=== PATIENT | female | born 1935 | race Caucasian/White ===

== ENCOUNTER 2016-07-03 15:29 | Inpatient (IN) | payer MEDICARE ==
[2016-07-03 16:20] LABS: BASOPHILS 0.5 % (0.0-2.0); EOSINOPHILS 0.5 % (0-7); HEMOGLOBIN 9.2 g/dL (12-16); IMMATURE GRANULOCYTES 0.2 % (0-5); LYMPHOCYTES 20.7 % (15-50); MCH 22.3 pg (26.0-34.0); MCHC 28.8 g/dL (31.0-37.0); MCV 77.7 fL (80.0-100.0); MEAN PLATELET VOLUME 9.1 fL (7.4-10.4); NEUTROPHILS 68.1 % (40-80); RBC 4.12 10x6/uL (4.00-5.40); RDW 17.9 % (11.5-14.5); WBC 4.1 10x3/uL (4.8-10.8)
[2016-07-03 16:24] LABS: PLATELET COUNT 258 10x3/uL (130-400)
[2016-07-03 16:25] LABS: UDS - AMPHET NEGATIVE QUAL (NEGATIVE); UDS - BARB NEGATIVE QUAL (NEGATIVE); UDS - BENZO NEGATIVE QUAL (NEGATIVE); UDS - COCAINE NEGATIVE QUAL (NEGATIVE); UDS - METH NEGATIVE QUAL (NEGATIVE); UDS - OPIATE POSITIVE QUAL (NEGATIVE); UDS - PCP NEGATIVE QUAL (NEGATIVE); UDS - THC NEGATIVE QUAL (NEGATIVE)
[2016-07-03 16:34] LABS: ALBUMIN 3.8 g/dL (3.4-5.0); ANION GAP 12.1 mmol/L (8-16); BILIRUBIN - TOTAL 0.37 mg/dL (0.2-1.3); CARBON DIOXIDE 27.5 mmol/L (21.0-32.0); CREATININE - SERUM 1.1 mg/dL (0.6-1.3); POTASSIUM - SERUM 3.6 mmol/L (3.5-5.1)
[2016-07-03 16:35] LABS: APPEARANCE HAZY (CLEAR); BILIRUBIN NEGATIVE (NEGATIVE); COLOR YELLOW (YELLOW); GLUCOSE NEGATIVE (NEGATIVE); KETONE NEGATIVE (NEGATIVE); LEUKOCYTE ESTERASE 1+ (NEGATIVE); NITRITE POSITIVE (NEGATIVE); PROTEIN TRACE mg/dL (NEGATIVE); UROBILINOGEN NORMAL (NORMAL)
[2016-07-03 16:37] LABS: BACTERIA MANY /hpf (NONE SEEN); EPITHELIAL CELLS 0-5 /hpf (0-5); RED CELLS - URINE 0-5 /hpf (0-5)
[2016-07-03 16:43] LABS: THYROID STIMULATING HORMONE 0.64 uIU/mL (0.36-3.74)
[2016-07-03 17:43] LABS: % SATURATION 3 % (15-55); IRON 13 ug/dl (35-150); TOTAL IRON BIND CAPACITY 342 ug/dl (260-445); UNSAT IRON BIND CAPACITY 329 ug/dl (150-375)
[2016-07-03] MEDS ORDERED: CALAN SR240 MG PO (20:08)
[2016-07-03] MEDS ORDERED: LISINOPRIL5 MG PO (20:08)
[2016-07-03] MEDS ORDERED: ZOFRAN ODT4 MG/UDTAB PO (20:10)
[2016-07-03] MEDS ORDERED: HYDROCODONE-APA1 TAB PO (20:11)
[2016-07-03] MEDS ORDERED: PHENERGAN25 M1 PO (20:12)
[2016-07-03] MEDS ORDERED: LOMOTIL TABLET1 TAB PO (20:12)
[2016-07-03] MEDS ORDERED: ATIVAN1 MG PO (20:13)
[2016-07-03] MEDS ORDERED: ULTRAM50 MG PO (20:15)
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
[2016-07-04 03:06] VITALS: BP 183/89; BMI 20.6
--- NOTE | 2016-07-04 05:12 | NUR ---
PATIENT GAETANO CALLED, .
[2016-07-04 08:39] VITALS: BP 142/100
[2016-07-04 12:22] VITALS: Wt 54.4 kg
--- NOTE | 2016-07-04 14:03 | NUR ---
(B)RECEIVED PATIENT AT THE NURSE'S STATION ASKING IF SHE WAS GOING TO SEE A DOCTOR TODAY. VERY FORGETFUL AND CONTINUES TO ASK THE SAME QUESTION AGAIN AND AGAIN. ORIENTED TO [facility] TOMBALL AND THURSDAY. RELATES REASON FOR HOSPITALIZATION "MOSTLY CONFUSION. I THOUGHT MY WAS OFF AT [employer] AND THIS MAN WOULD ASK WHEN LISBETH IS COMING HOME. I'M LISBETH AND YOU CAN BE HAPPY WITH ME NOW." SOCIAL. COOPERATIVE AND PLEASANT. (I)ADMINISTER MEDS AND MONITOR COMPLIANCE. REORIENT NEEDED, (R)MED COMPLIANT. REORIENTS HOWEVER SHORT TERM MEMORY IS IMPAIRED AND DOES NOT RETAIN INFORMATION. REMAINS COOPERATIVE AND PLEASANT HOWEVER VERY CONFUSED. (P)CONTINUE POC AND MAINTAIN FALL PRECAUTIONS.
[2016-07-04 19:30] VITALS: BP 123/85
--- NOTE | 2016-07-04 20:30 | NUR ---
B) RECEIVED IN DAYROOM SITTING IN CHAIR WATCHING TV. CALM AND PLEASANT WITH ASSESSMENT AND CARE. SOCIALIZES WITH PEERS. CONFUSED AT TIMES. I) VSS. ADMINISTER PRESCRIBED MEDICATIONS AND MONITOR FALLS AND SAFETY. R) MED COMPLIANT. REDIRECT NEEDED. P) CONTINUE PLAN OF CARE.
--- NOTE | 2016-07-05 03:55 | NUR ---
NORCO 10/325 MG PO GIVEN FOR BACK PAIN AT LEVEL#8.
[2016-07-05 07:44] VITALS: BP 149/83
--- NOTE | 2016-07-05 09:00 | NUR ---
SPOKE WITH MR VALDIVIA ABOUT BRINGING SOME CLOTHES FOR . VERBALIZED HE WOULD.
[2016-07-05 09:12] LABS: FOLATE (FOLIC ACID) - SERUM 9.1 ng/mL (>3.0)
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
[2016-07-05 19:40] VITALS: BP 140/71
--- NOTE | 2016-07-05 22:06 | NUR ---
B) Quiet evening, retired to bed shortly after HS medication. No voiced complaints, no self disclosures, somewhat nervous and anxious initially. I) Administer medications as ordered, monitor behavior, redirect and reorient PRN, offer emotional reassurance and opportunities to express self. R) Oriented to person and place. Compliant with medication. Quiet, flat affect. Isolative and withdrawn. P) Monitor per plan of care.
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
[2016-07-06 07:48] VITALS: BP 160/106
--- NOTE | 2016-07-06 18:14 | NUR ---
RECEIVED THIS AM IN BED.IS ORIENTED TO PERSON AND PLACE,DISORIENTED TO TIME.COMPLIANT WITH MEDS.QUITE ,KEEPS TO SELF BUT DOES TALK WITH STAFF.IS AMBULATORY WITH WALKER,VERY UNSTEADY GAIT WITHOUT WALKER.WILL CONTINUE WITH PLAN OF CARE,MONITOR FOR CHANGES.
[2016-07-06 19:30] VITALS: BP 126/87
--- NOTE | 2016-07-07 02:00 | NUR ---
PATIENT IN BED, COMPLAINTS OF PAIN IN LOWER BACK. REPOSITIONING PATIENT ON SIDE WITH PILLOW BETWEEN KNEES, GAVE PATIENT SOME RELIEF. PATIENT HAD PAIN AT 7/10 ON PAIN SCALE. PRN NORCO-10 GIVEN. PATIENT SETTLED DOWN AND WAS ABLE TO FALL ASLEEP. CONTINUE TO MONITOR.
[2016-07-07 07:46] VITALS: BP 158/100
--- NOTE | 2016-07-07 08:45 | PN ---
PATIENT:AGGIE VALDIVIA MEDICAL RECORD: [id number] LOCATION:[facility] ADMISSION DATE: 07/03/16 PROGRESS NOTE DATE OF SERVICE: 07/06/2016 SUBJECTIVE: No new complaint noted. OBJECTIVE: The patient has been reasonably cooperative. She continues to talk about the fact that she did not recognize her . On exam, mood is slightly anxious. Affect is fairly well controlled. Speech is fairly fluent. Content of thought focuses on somatic concerns. Sensorium shows no change. ASSESSMENT: No change in diagnosis. PLAN: 1. Maintain current medications. 2. Continue supportive therapy. TRANSINT:[id number] Voice Confirmation ID: [id number] DOCUMENT ID: [id number] RACHEL LI III, MD at 0845 CC: [id number] DICTATION DATE: 07/06/16 08 CONSTRUCTION ADMINISTRATOR: 07/06/16 1045 ADM IN [place] [id number]
[2016-07-07 13:00] VITALS: BP 151/77
--- NOTE | 2016-07-07 18:08 | NUR ---
B.) Alert and oriented time three, states she is here because " me and my had a disagreement, I was confused and did'nt know him, I did know who he was yesterday." I.) Adminsiter medications and monitor compliance. Reorient as need. Monitor for any change in mental status. Monitor safety. R.) compliant with medications. Remains alert and oriented times three, social with staff with appropriate conversation and recall. Patient has requested pain medications this am for chronic back pain and less than 2 hours later she asked again, reducated that she just had medication " oh ok, I forgot." ambulatory with walker. Safety maintained. P.) Continue plan of care.
[2016-07-07 20:00] VITALS: BP 155/78
--- NOTE | 2016-07-07 20:13 | NUR ---
RECEIVED IN DAYROOM. SITTING IN RECLINING CHAIR. SOCIAL WITH STAFF AT TIME. ALERT AND ORIENTED. CALM AND COOPERATIVE WITH CARE AND ASSESSMNET. STATES BACK PAIN OF 7. ENCOURAGE TO EXPRESS NEEDS. CONTINUE PLAN OF CARE.
[2016-07-08 07:25] VITALS: BP 172/95
--- NOTE | 2016-07-08 10:19 | PN ---
PATIENT:AGGIE VALDIVIA MEDICAL RECORD: [id number] LOCATION:[facility] ADMISSION DATE: 07/03/16 PROGRESS NOTE DATE OF SERVICE: 07/07/2016 SUBJECTIVE: The patient states she is feeling much better. OBJECTIVE: The patient does have some insight. She realizes that she had misidentified her . She says that she knows that she was very confused when she came in. It was explained to the patient that she had a urinary tract infection, but also that she was certainly taking too much medication in terms of her analgesics. On exam, mood is euthymic and pleasant. Affect is bland. Speech is fairly fluent. Content of thought focuses only on somatic concerns. Sensorium is unchanged. ASSESSMENT: No change in diagnosis. PLAN: 1. We will continue current medication and close observation. 2. Continue supportive therapy. TRANSINT:[id number] Voice Confirmation ID: [id number] DOCUMENT ID: [id number] RACHEL LI III, MD at 1019 CC: [id number] DICTATION DATE: 07/07/16 1050 CASING TESTER: 07/07/16 1456 ADM IN [place] [id number] [place] [address]
[2016-07-08] MEDS ORDERED: LISINOPRIL10 MG PO (11:21)
[2016-07-08] MEDS ORDERED: CELEXA20 MG PO (11:22)
[2016-07-08] MEDS ORDERED: TRAZODONE HCL50 MG PO (11:38)
--- NOTE | 2016-07-08 12:40 | NUR ---
(B)RECEIVED PATIENT SITTING IN A CHAIR AT THE NURSE'S STATION. ORIENTED X3. RELATES REASON FOR HOSPITALIZATION "PROBLEM AT HOME. CONFUSION SPELL AND DIDN'T KNOW MY . I KNEW THE GRANDKIDS." CALM AND COOPERATIVE. (I)ADMINISTER MEDS AND MONITOR COMPLIANCE. REFOCUS WHEN CONFUSION IS OBSERVED. (R)MED COMPLIANT. APPEARS THOUGHT PROCESS IS INTACT THIS AM AND PATIENT WAS ABLE TO VERBALIZE THE REASON FOR HOSPITALIZATION. (P)CONTINUE POC AND MAINTAIN FALL PRECAUTIONS.
[2016-07-08 19:16] VITALS: BP 150/74
--- NOTE | 2016-07-08 20:02 | NUR ---
RECEIVED IN DAYROOM. STTING IN RECLINING CHAIR WITH EYES OPEN WATCHING TV AT TIMES. ALERT AND ORIENTED. ENCOURAGE TO ASK FOR ASSIST IF NEEDED. ENCOURAGE TO EXPRESS NEEDS. CONTINUES TO SIT QUIETLY IN RECLINER. CONTINUE PLAN OF CARE
[2016-07-09 08:06] VITALS: BP 145/81
--- NOTE | 2016-07-09 10:21 | PN ---
PATIENT:AGGIE VALDIVIA MEDICAL RECORD: [id number] LOCATION:[facility] ADMISSION DATE: 07/03/16 PROGRESS NOTE DATE OF SERVICE: 07/08/2016 SUBJECTIVE: The patient states that she is doing much better. OBJECTIVE: The patient is great deal more insight about her situation. She now admits that she was taking too much medication. On exam, mood is euthymic. Affect is bland. Speech is fairly fluent. Content of thought is negative for overt psychosis. Sensorium is unchanged. ASSESSMENT: No change in diagnosis. PLAN: 1. Continue current treatment plan. 2. Anticipate discharge tomorrow. TRANSINT:[id number] Voice Confirmation ID: [id number] DOCUMENT ID: [id number] RACHEL LI III, MD at 1021 CC: [id number] DICTATION DATE: 07/08/16 1136 BATCH AND FURNACE MANAGER: 07/08/16 1807 ADM IN [place] [id number] [place] [id number]
--- NOTE | 2016-07-09 11:19 | NUR ---
DISCHARGE ORDERS AND MEDICATIONS FAXED TO DR GARCIA IN [place], [place].
--- NOTE | 2016-07-09 11:22 | NUR ---
PRESCRIPTIONS CALLED INTO THE PHARMACY OF PATIENT'S CHOICE [facility] IN [place], [place].
--- NOTE | 2016-07-09 13:00 | NUR ---
(B)RECEIVED PATIENT SITTING IN A CHAIR AT THE NURSE'S STATION. ORIENTED TO SELF, PLACE AND REASON FOR HOSPITALIZATION. SOCIAL WITH STAFF. CALM AND COOPERATIVE. CHRONIC BACK PAIN. (I)ADMINISTER MEDS AND MONITOR COMPLIANCE.DISCUSS DISCHARGE PLAN WITH PATIENT. (R)MED COMPLIANT. VERBALIZES UNDERSTANDING OF DISCHARGE PROCESS. DISCHARGE FOLLOW UP APPOINTMENT MADE AND PRESCRIPTIONS CALLED INTO THE PHARMACY OF PATIENT'S CHOICE. (P)CONTINUE POC AND MAINTAIN FALL PRECAUTIONS.
--- NOTE | 2016-07-09 13:15 | NUR ---
DISCHARGED HOME WITH FAMILY MEMBERS PER PRIVATE VEHICLE. PERSONAL ITEMS RETURNED AND SENT WITH PATIENT. FOLLOW-UP APPOINTMENT GIVEN TO PATIENT AND FAMILY. CONDITION STABLE AT TIME OF DISCHARGE.
--- NOTE | 2016-07-10 03:55 | DS ---
PATIENT:AGGIE VALDIVIA :33 MEDICAL RECORD: [id number] DISCHARGE SUMMARY ADMISSION DATE: 07/03/16 DISCHARGE DATE: 07/09/16 DATE OF ADMISSION: 07/03/2016 DATE OF DISCHARGE: 07/09/2016 HISTORY OF PRESENT ILLNESS: An 81-year-old white female with no previous psychiatric history. The patient was brought in by family because she had exhibited an acute confusional state. She had misidentified her is someone else. She stated that there was a strange man in her house and she was alarmed by this. The patient did have a previous history of depression and according to family, had had some worsening memory problems over the last year or two. The patient has also taken a considerable amount of narcotic pain medication as well as anxiolytics. She had routine doses of both hydrocodone and tramadol as well as Ativan. Because of worsening mental status, the patient was admitted. For further details, please see previously dictated history. COURSE IN THE HOSPITAL: The patient was seen in consultation by Dr. Estrada. He noted the presence of hypertension, chronic back pain, neuropathy and iron deficiency anemia. From a medication standpoint, it was elected to modify the dose of Blanchard that the patient had been receiving. She was receiving 10/325 two tablets up to 4 times a day. This was reduced to 1 tab every 6 hours p.r.n. only. The patient was started on trazodone 50 mg at h.s. for insomnia. She was maintained on lisinopril 20 mg daily for hypertension. She was also placed on Celexa 20 mg daily for depressive symptoms. This had been reported. In addition, the patient was maintained on Calan SR 240 mg daily, Ultram on a p.r.n. basis 50 mg every 6 hours. The patient showed a very good resolution of her symptoms during the hospitalization. By the third hospital day, she was no longer exhibiting any sort of delusional ideation. She had very strong family support. It was felt by the time of discharge that the patient was stable to return to the home environment. The family is considering having home health come to visit the patient for monitoring. 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 AXIS II: No diagnosis. AXIS III: Chronic back pain, hypertension, iron deficiency anemia, medication-induced delirium. AXIS IV: Moderate. AXIS V: 46. PLAN: 1. The patient is discharged on current medication. 2. Diet and activities as tolerated. 3. Follow up through primary care physician and perhaps home health. TRANSINT:[id number] Voice Confirmation ID: [id number] DOCUMENT ID: [id number] DISCHARGE SUMMARY REPORT [id number] AGGIE VALDIVIA III, RACHEL Miller MD at 0355 CC: [id number] DICTATION DATE: 07/09/161112 INWARD TOLL OPERATOR: 07/10/16 0121 DIS IN 07/09/16 [facility] [address] [place] [address]
== END 2016-07-09 13:15 | disposition home or self-care (01) | DRG 57 ==
LOC: D.ER 15:29 → D.PSYCH 19:22
PROVIDERS: Emergency Medicine; ADMIT Psychiatry & Neurology Psychiatry
DX: G30.9 Alzheimer's disease, unspecified (principal); F02.81 Dementia in other diseases classified elsewhere, unspecified severity, with behavioral disturbance; F05 Delirium due to known physiological condition; N39.0 Urinary tract infection, site not specified; F01.50 Vascular dementia, unspecified severity, without behavioral disturbance, psychotic disturbance, mood disturbance, and anxiety; M81.0 Age-related osteoporosis without current pathological fracture; B96.20 Unspecified Escherichia coli [E. coli] as the cause of diseases classified elsewhere; D50.9 Iron deficiency anemia, unspecified; I10 Essential (primary) hypertension; G89.29 Other chronic pain; M54.9 Dorsalgia, unspecified; F41.9 Anxiety disorder, unspecified; F32.9 Major depressive disorder, single episode, unspecified; G62.9 Polyneuropathy, unspecified; Z74.09 Other reduced mobility